=== PATIENT | male | born 1980 | race Caucasian/White ===

== ENCOUNTER 2020-02-15 12:58 | Emergency (ER) | payer MEDICAID, SELFPAY ==
[2020-02-15 13:16] VITALS: BP 129/94; PULSE 93; RESP 20; TEMP 36.6; O2SAT 97; BMI 27.6
--- NOTE | 2020-02-15 13:19 | HMH.EDUTC ---
[facility] [place] Disposition Clinical Impression: Viral syndrome, Bronchitis Disposition: Home, Self-Care Condition on Discharge: Good Instructions: DI for Viral Syndrome Additional Instructions: Drink plenty of fluids. Take tylenol or ibuprofen for pain or fever. Take the medications as directed. Follow up with your regular doctor. GO TO THE ER FOR ANY WORSENING SYMPTOMS Prescriptions: Brompheniramine/Pseudoephed/Dm [Bromfed Dm Cough Syrup] 5 ml PO Q6HP PRN #240 syrup PRN Reason: Cough Transmission Status: Received by [facility] # Ondansetron [Zofran 4mg ODT] 4 mg PO Q8HP PRN #10 tab.rapdis PRN Reason: Nausea Transmission Status: Received by [facility] # Azithromycin [Z-Bong 250mg Tab*] 250 mg PO UD DOSE PK #6 tab Transmission Status: Received by [facility] # Referrals: Provider,Referral, MD [Primary Care Provider] - Forms: Work/School Release Time of Disposition: 13:34 Medical Decision Making - Medical Records Medical records reviewed: No: I reviewed the patient's medical records. - Lonnie Inquiry Pt receiving controlled substance: No Vital Signs: 02/15/20 13:16 02/15/20 13:35 Temperature 98 F 98 F Temperature Source Oral Oral Pulse Rate 93 H Pulse Rate [Right Brachial] 93 H Respiratory Rate 20 20 Blood Pressure 129/94 H Blood Pressure [Right Arm] 129/94 H Blood Pressure Mean [Right Arm] 105 Blood Pressure Source Automatic Cuff Blood Pressure Source [Right Arm] Automatic Cuff Blood Pressure Position Sitting Blood Pressure Position [Right Arm] Sitting 02 Sat by Pulse Oximetry 97 Oxygen Delivery Method Room Air Room Air - Lab Data Lab Results 02/15/20 13:22: Influenza Type A Ag Negative, Influenza Type B Ag Negative 02/15/20 13:22: Strep Scn Rapid Clinic Negative Orders (Tests/Meds): ORDERS Category Date Time Status Strep Screen Confirmation Stat Micro 02/15/20 13:22 Received [facility] [place] HPI - General Stated complaint: cough diarrhea nausea Time Seen by Provider: 02/15/20 13:19 - History of Present Illness Provider Complaint: He states that for the past 2 days he has had a mild cough, low grade fever and some nausea. He denies any body aches. He denies feeling bad. - Related Data Previous Rx's Medication Instructions Recorded Azithromycin [Z-Bong 250mg Tab*] 250 mg PO UD DOSE PK #6 tab 02/15/20 Brompheniramine/Pseudoephed/Dm 5 ml PO Q6HP PRN #240 syrup 02/15/20 [Bromfed Dm Cough Syrup] Ondansetron [Zofran 4mg ODT] 4 mg PO Q8HP PRN #10 tab.rapdis 02/15/20 Allergies Allergy/AdvReac Type Severity Reaction Status Date / Time No Known Allergies Allergy Verified 02/15/20 13:22 [facility] History - Hepatitis A Screen Attestation statement:: This patient has been screened for Hepatitis A risk factors. I have reviewed the patient's past medical history: Yes ROS Obtained: No All systems reviewed & no additional complaints - Constitutional Constitutional: Denies chills, Denies fever(s), Reports poor appetite, Reports malaise - Eyes Eyes: Denies eye discharge - ENT Ears, Nose, Mouth, and Throat: Reports as per HPI - Cardiovascular Cardiovascular: Denies chest pain - Respiratory Respiratory: No chest congestion, No cough, No dyspnea, No coughing up blood, No stridor, No wheezing Physical Exam - General General appearance: alert, in no apparent distress - Head Head exam: atraumatic, normocephalic, normal inspection - Eye Eye exam: Present: normal appearance, PERRL, EOMI - ENT ENT exam: Present: normal exam, normal oropharynx, mucous membranes moist, TM's normal bilaterally, normal external ear exam - Neck Neck exam: Present: normal inspection, full ROM, trachea midline. Absent: meningismus, lymphadenopathy - Chest Chest inspection: Present: normal inspection, symmetric chest wall rise. Absent: tenderness - Respiratory Respiratory exam: Present: normal lung sounds
[2020-02-15 13:28] LABS: UTC Strep Screen (Rapid) Negative (Negative)
[2020-02-15 13:29] LABS: UTC Influenza A Antigen Negative (Negative); UTC Influenza B Antigen Negative (Negative)
[2020-02-15 13:35] VITALS: BP 129/94; PULSE 93; RESP 20; TEMP 36.6; O2SAT 97
== END 2020-02-15 13:40 | disposition home or self-care (01) ==
PROVIDERS: Emergency Provider Nurse Practitioner Family
DX: B34.9 Viral infection, unspecified (principal); J20.9 Acute bronchitis, unspecified
CPT/HCPCS: 87804; 87880; 99202

== ENCOUNTER 2021-07-03 02:14 | Emergency (ER) | payer SELFPAY ==
[2021-07-03 02:15] VITALS: BP 132/87; PULSE 87; RESP 16; TEMP 36.6; O2SAT 96; BMI 25.8
--- NOTE | 2021-07-03 02:39 | HMH.EDSKAF ---
ED Disposition Clinical Impression: Dermatitis Disposition: Home, Self-Care Condition on Discharge: Good Instructions: DI for Itching Additional Instructions: use meds and see pcp for follow up Prescriptions: predniSONE [Prednisone 20mg Tab] 20 mg PO BID #10 tab Transmission Status: Pending to [facility] # hydrOXYzine pamoate [Vistaril] 25 mg PO TID PRN #30 cap PRN Reason: Itching Transmission Status: Pending to [facility] # Referrals: Provider,Referral, [Primary Care Provider] - - Critical Care Critical Care Time: No Attestation: On 07/03/21, the high probability of a clinically significant, sudden or life threatening deterioration of the following system(s) required my full and direct attention, intervention and personal management. The time I documented below is in addition to time spent performing reported procedures but includes the following listed in this critical care notation. Medical Decision Making - Medical Records Medical records reviewed: Yes: I reviewed the patient's medical records. - Lnonie Inquiry Pt receiving controlled substance: No Vital Signs: 07/03/21 02:15 Temperature 97.8 F Temperature Source Oral Pulse Rate [Left Radial] 87 Respiratory Rate 16 Blood Pressure [Right Arm] 132/87 Blood Pressure Mean [Right Arm] 102 Blood Pressure Source [Right Arm] Automatic Cuff Blood Pressure Position [Right Arm] Sitting 02 Sat by Pulse Oximetry 96 Oxygen Delivery Method Room Air Medical Decision Narrative: nonspecific rash to leg with itching - not prob tick and no evid of infection Skin/Abscess/FB HPI - General Chief complaint: Skin/Abscess/Foreign Body Stated complaint: Stinging itch in both legs Time Seen by Provider: 07/03/21 02:20 Mode of Arrival: Ambulatory Source of Information: Patient, Medical Record Limitations: No Limitations Description of Symptoms (Recalled from ER Triage Doc. by RN): Pt c/o BLE itching since 10am 07/02. Pt denies fevers. Denies N/V/D. Denies cough. Pt reports bites to both thighs. - History of Present Illness HPI narrative: has rash bites to lower ext with stinging and itchy - no fever or other c/o MD complaint: rash Onset (ago): day(s) Tetanus up to date: unsure Location: LLE, RLE Severity: moderate Associated symptoms: itching Treatments prior to arrival: none - Related Data Previous Rx's Medication Instructions Recorded hydrOXYzine pamoate [Vistaril] 25 mg PO TID PRN #30 cap 07/03/21 predniSONE [Prednisone 20mg 20 mg PO BID #10 tab 07/03/21 Tab] Allergies Allergy/AdvReac Type Severity Reaction Status Date / Time No Known Allergies Allergy Verified 02/15/20 13:22 [facility] History - Hepatitis A Screen Drug use history?: No High risk sexual behaviors?: No History of sexually transmitted infection?: No Currently employed?: No Childcare worker?: No Do you have indoor plumbing?: Yes Do you have electricity?: Yes Attestation statement:: This patient has been screened for Hepatitis A risk factors. I have reviewed the patient's past medical history: Yes - Social History Smoking Status: Current every day smoker Tobacco Type: cigarettes # Packs/Day (cigarettes): 1 Alcohol Intake: never Occupational Status: employed ROS Obtained: Yes All systems reviewed & no additional complaints - Constitutional Constitutional: Denies fever(s) - Eyes Eyes: Denies change in vision - ENT Ears, Nose, Mouth, and Throat: Denies sore throat - Cardiovascular Cardiovascular: Denies chest pain - Respiratory Respiratory: Denies shortness of breath - Gastrointestinal Gastrointestingal: Denies: abdominal pain - Genitourinary Male Genitourinary: Denies hematuria - Musculoskeletal Musculoskeletal: Denies joint pain - Integumentary/Breasts Skin/Breast: Reports as per HPI, Reports rash - Neurologic Neurologic: Denies headache(s), Denies seizure-like activity Physical Exa
[2021-07-03 02:48] VITALS: BP 133/80; PULSE 80; RESP 17; TEMP 36.7; O2SAT 96
== END 2021-07-03 02:51 | disposition home or self-care (01) ==
PROVIDERS: Emergency Provider Emergency Medicine
DX: L30.9 Dermatitis, unspecified (principal); F17.210 Nicotine dependence, cigarettes, uncomplicated
CPT/HCPCS: 99281

== ENCOUNTER 2022-06-16 10:11 | Emergency (ER) | payer MEDICAID, SELFPAY ==
--- NOTE | 2022-06-16 10:40 | HMH.EDUTC ---
[facility] [place] Clinical Impression: Viral syndrome, Bronchitis, Exposure to COVID-19 virus Disposition: Home, Self-Care Condition on Discharge: Good Instructions: DI for Viral Syndrome, DI for COVID-19 (Suspected or Confirmed ), Preventing the Spread of Coronavirus Discharge Instructions Additional Instructions: Drink plenty of fluids. Take tylenol or ibuprofen for pain or fever. Take the medications as directed. Follow up with your regular doctor. GO TO THE ER FOR ANY WORSENING SYMPTOMS Quarantine until you know the results of your covid-19 test. Notify your school or workplace of your results and follow their instructions regarding return to work/school. Prescriptions: Ondansetron [Zofran 4mg ODT] 4 mg PO Q8HP PRN #12 tab PRN Reason: Nausea Transmission Status: Received by [id number] methylPREDNISolone [Medrol] 4 mg PO DIRECTED 6 Days #21 packet Transmission Status: Received by [id number] Azithromycin [Z-Bong 250mg Tab*] 250 mg PO UD DOSE PK #6 tab Transmission Status: Received by [id number] Referrals: Timur Armstrong MD [Primary Care Provider] - Forms: Work/School Release Time of Disposition: 10:57 Medical Decision Making - Medical Records Medical records reviewed: No: I reviewed the patient's medical records. - Lonnie Inquiry Pt receiving controlled substance: No Vital Signs: 06/16/22 10:43 06/16/22 11:17 Temperature 99.0 F 99.0 F Temperature Source Oral Pulse Rate 89 Pulse Rate [Left] 89 Respiratory Rate 16 16 Blood Pressure 105/71 L Blood Pressure [Right Arm] 105/71 L Blood Pressure Mean [Right Arm] 82 02 Sat by Pulse Oximetry 96 [facility] [place] HPI - General Stated complaint: body aches, LAMB, fever, cough, diarreia Time Seen by Provider: 06/16/22 10:40 - History of Present Illness Provider Complaint: He states that he has felt bad for the past 2 days. He has been exposed to covid-19. - Related Data Previous Rx's Medication Instructions Recorded hydrOXYzine pamoate [Vistaril] 25 mg PO TID PRN #30 cap 07/03/21 predniSONE [Prednisone 20mg 20 mg PO BID #10 tab 07/03/21 Tab] Azithromycin [Z-Bong 250mg Tab*] 250 mg PO UD DOSE PK #6 tab 06/16/22 Ondansetron [Zofran 4mg ODT] 4 mg PO Q8HP PRN #12 tab 06/16/22 methylPREDNISolone [Medrol] 4 mg PO DIRECTED 6 Days #21 06/16/22 packet Allergies Allergy/AdvReac Type Severity Reaction Status Date / Time No Known Allergies Allergy Verified 06/16/22 10:45 [facility] History - Hepatitis A Screen Attestation statement:: This patient has been screened for Hepatitis A risk factors. I have reviewed the patient's past medical history: Yes - Social History Smoking Status: Current every day smoker Tobacco Type: cigarettes # Packs/Day (cigarettes): 1 Alcohol Intake: never Occupational Status: employed ROS Obtained: Yes All systems reviewed & no additional complaints - Constitutional Constitutional: Reports as per HPI - Eyes Eyes: Denies eye discharge - ENT Ears, Nose, Mouth, and Throat: Reports as per HPI - Cardiovascular Cardiovascular: Denies chest pain - Respiratory Respiratory: Denies chest congestion, Reports cough Physical Exam - General General appearance: alert, in no apparent distress - Head Head exam: atraumatic, normocephalic, normal inspection - Eye Eye exam: Present: normal appearance, PERRL, EOMI - ENT ENT exam: Present: normal exam, normal oropharynx, mucous membranes moist, TM's normal bilaterally, normal external ear exam - Neck Neck exam: Present: normal inspection, full ROM, trachea midline. Absent: meningismus, lymphadenopathy - Chest Chest inspection: Present: normal inspection, symmetric chest wall rise. Absent: tenderness - Respiratory Respiratory exam: Present: normal lung sounds bilaterally. Absent: respiratory distress - Cardiovascular Cardiovascular exam: Present: regular rate, normal rhythm.
[2022-06-16 10:43] VITALS: BP 105/71; PULSE 89; RESP 16; TEMP 37.2; O2SAT 96; BMI 26.6
[2022-06-16 11:17] VITALS: BP 105/71; PULSE 89; RESP 16; TEMP 37.2
== END 2022-06-16 11:17 | disposition home or self-care (01) ==
PROVIDERS: Emergency Provider Nurse Practitioner Family; PCP Emergency Medicine
DX: U07.1 COVID-19 (principal); R19.7 Diarrhea, unspecified; R51.9 Headache, unspecified; M79.10 Myalgia, unspecified site; F17.210 Nicotine dependence, cigarettes, uncomplicated; Z79.52 Long term (current) use of systemic steroids
CPT/HCPCS: 99213; C9803; G0463; U0003; U0005

== ENCOUNTER 2022-09-20 09:04 | Emergency (ER) | payer MEDICAID, SELFPAY ==
[2022-09-20 10:40] VITALS: BP 155/92; PULSE 72; RESP 18; TEMP 36.6; O2SAT 98; BMI 25.8
--- NOTE | 2022-09-20 11:03 | EXP.UTC ---
Discharge Plan Disposition Patient Disposition: Home, Self-Care Condition: Good Prescriptions Prescriptions: New etodolac 200 mg capsule 200 mg PO Q8H PRN (Reason: pain) Qty: 20 0RF methylprednisolone [Medrol (Bong)] 4 mg tablets,dose pack See Rx Instructions .Route .COMPLEX 6 Days Qty: 21 0RF Rx Instructions: taper pack; methocarbamol 500 mg tablet 500 mg PO TID PRN (Reason: muscle spasm) Qty: 15 0RF Referrals Follow up/Referrals: Timur Armstrong MD [Primary Care Provider] - See instructions Activity Restrictions/Add. Instructions Additional Instructions/Restrictions: *Etodolac every 8 hours with meal as needed for pain/inflammation do not start until 11pm tonight *Remember you had a Toradol shot in the clinic today, which is similar to Etodolac *Not additional anti-inflammatory like motrin, ibuprofen aleve, advil with the above amount of Etodolac. You can still take Tylenol every 4 hours as needed if you need something else for pain *Ice 20 minutes every 2 hours for the first 48 hours after the initial injury followed by moist heat every 20 minutes 3-4 times a day to affected area *Muscle relaxer every 8 hours as needed for muscle spasms but remember, it WILL cause drowsiness You cannot take it and drive, operate machinery or care for small children. *Keep this area active, no movement leads to more stiffness, However take it easy and avoid heavy lifting pushing or pulling *Follow up with you family doctor if no improvement for further treatment Start medrol dose pack tomorrow Clinical Impressions Clinical Impression: Low back pain Qualifiers: Chronicity: acute Back pain laterality: unspecified Sciatica presence: without sciatica Qualified Code(s): M54.50 - Low back pain, unspecified Stand Alone Forms Stand Alone Forms: Work/School Release Instructions Patient Instructions: Low Back Pain, DI for Low Back Pain Discharge ED Provider: Johanna Austin [facility] [place] General Stated complaint: back pain Mode of Arrival: Ambulatory Source of Information: Patient Limitations: No Limitations Time Seen by Provider: 09/20/22 11:03 Description of Symptoms (Recalled from Triage Doc. by RN): PATIENT C/O LOWER BACK PAIN X 1 WEEK HEENT Symptoms (Recalled from RN notes): No Resp Symptoms (Recalled from RN notes): No Skin Symptoms (Recalled from RN notes): No MS Symptoms (Recalled from RN notes): Yes Functional Status (Recalled from RN notes): WNL History of Present Illness Provider Complaint: Patient states that he does alot of standing and walking at work States that he has been having pain in his left lower back States that he hasnt done anything that he is aware of to hurt it but has had back problems in the past States that feels like he is having spasms when he moves certain ways so today he came in denies loss of control of bowel or bladder Related Data Previous Rx's Medication Instructions Recorded etodolac 200 mg capsule 200 mg PO Q8H PRN pain #20 caps 09/20/22 methocarbamol 500 mg tablet 500 mg PO TID PRN muscle spasm #15 09/20/22 tabs methylprednisolone 4 mg tablets in See Rx Instructions .Route 09/20/22 a dose pack (Medrol (Bong)) .COMPLEX 6 days #21 tabs Allergies Allergy/AdvReac Type Severity Reaction Status Date / Time No Known Allergies Allergy Verified 06/16/22 10:45 Worker's Comp Is this a Worker's Comp case?: No PFSH PFSH Surgical History (Updated 09/20/22 @ 10:48 by Summer Diana RN) History of appendectomy Social History (Updated 09/20/22 @ 10:48 by Summer Diana RN) Smoking Status: Current every day smoker tobacco type: cigarettes packs per day: 1 alcohol intake: never current occupational status: employed Travel in the last 8 weeks: None ROS Obtained: Yes All systems reviewed & no additional complaints except as documented and Yes Systems reviewed as appropriate & no additional complaints except as documented Constitutional Constitutional:
[2022-09-20 11:26] VITALS: BP 155/92; PULSE 72; RESP 18; TEMP 36.6; O2SAT 98
== END 2022-09-20 11:33 | disposition home or self-care (01) ==
PROVIDERS: Emergency Provider Nurse Practitioner; PCP Emergency Medicine
DX: M54.50 Low back pain, unspecified (principal)
CPT/HCPCS: 96372; 99213; G0463

== ENCOUNTER 2023-09-21 18:11 | Emergency (ER) | payer MEDICAID, SELFPAY ==
[2023-09-21] VITALS (15 sets, daily range): BP systolic 109–138; BP diastolic 68–91; PULSE 40–68; RESP 13–27; TEMP 36.3–36.8; O2SAT 98–100; BMI 28.7
--- NOTE | 2023-09-21 18:34 | PC.NURSE ---
Dr. Coley at bedside
--- NOTE | 2023-09-21 18:38 | HMH.EDGENADL ---
Discharge Plan Disposition Patient Disposition: Left Against Medical Advice Prescriptions Prescriptions: No Action No Known Home Medications Referrals Follow up/Referrals: Bhavin Mathew MD [Primary Care Provider] - See instructions Clinical Impressions Clinical Impression: Diarrhea, Nausea, Chronic back pain, Cannabinoid hyperemesis syndrome, Bradycardia, sinus Instructions Patient Instructions: DI for Diarrhea and Traveler's Diarrhea -- Adult, DI for Diarrhea and Traveler's Diarrhea -- Child, DI for Nausea -- Adult, DI for Nausea -- Child Discharge ED Provider: Jessenia Coley General Adult HPI General Chief complaint: Nausea/Vomiting/Diarrhea Stated complaint: back pain, vomiting Time Seen by Provider: 09/21/23 18:33 History of Present Illness HPI narrative: Patient is a 43-year-old male presenting today with multiple complaints. States he is having nausea diarrhea and lower back pain. His lower back pain he states is chronic but is a little bit worse than normal at the moment. Soft of the midline in the paraspinal musculature in the lumbar region. No midline pain no injuries no saddle anesthesia bowel or bladder incontinence urinary retention lower extremity weakness fevers history of injection drug use or cancer. No fevers or chills that he is aware of. 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 Related Data Home Medications Medication Instructions Recorded Confirmed No Known Home Medications 09/21/23 09/21/23 Allergies Allergy/AdvReac Type Severity Reaction Status Date / Time No Known Allergies Allergy Verified 10/05/22 09:02 [facility] Disclaimer: The information contained in this section may have been updated after the patient was seen, as this information can be updated by other users. Surgical History History of appendectomy Social History Smoking Status: Former smoker tobacco type: cigarettes packs per day: 1 alcohol intake: never current occupational status: employed Travel in the last 8 weeks: None ROS Obtained: Yes All systems reviewed & no additional complaints except as documented Physical Exam General General appearance: other (Patient lying in bed with his eyes closed would not open them to interact with me) Respiratory Respiratory exam: Present normal lung sounds bilaterally; Absent respiratory distress, wheezes or stridor Cardiovascular Cardiovascular exam: Present regular rate; Absent tachycardia Abdominal Exam Abdominal exam: Present soft; Absent distention or tenderness Back Exam Back exam: Present other (No midline spine tenderness normal neurovascular exam in bilateral lower extremities) Neurological Exam Neurological exam: Present alert and oriented X3 Medical Decision Making Lonnie Inquiry Pt receiving controlled substance: No Vital Signs: 09/21/23 18:12 09/21/23 18:20 09/21/23 18:40 Temperature 97.4 F L Temperature Source Oral Pulse Rate 49 L 43 L Pulse Rate [Left Radial] 59 L Respiratory Rate 20 Blood Pressure 137/89 138/86 Blood Pressure [Right Arm] 137/89 Blood Pressure Mean Blood Pressure Mean [Right Arm] 105 Blood Pressure Source [Right Arm] Automatic Cuff Blood Pressure Position [Right Arm] Sitting 02 Sat by Pulse Oximetry 100 99 99 Oxygen Delivery Method Room Air Room Air Room Air 09/21/23 19:00 Temperature Temperature Source Pulse Rate 47 L Pulse Rate [Left Radial] Respiratory Rate 22 Blood Pressure 116/81 Blood Pressure [Right Arm] Blood Pressure Mean 92 Blood Pressure Mean [Right Arm] Blood Pressure Source [Right Arm] Blood Pressure Position [Right Arm] 02 Sat by Pulse Oximetry 100 Oxygen Delivery Method Lab Data Lab results reviewed: Yes I reviewed the patient's lab results. Lab Results 09/21/23 18:38: Sodium 137, [place]
--- NOTE | 2023-09-21 18:45 | ECG_ITS ---
APPROVED REPORT Exam: Resting ECG HR:35 bpm ECG Measurements Heart Rate [address] 192 P 43 QRSd 106 QRS 47 QT 439 T 37 QTc 341 Conclusion SINUS BRADYCARDIA WITH SINUS ARRHYTHMIA CRITICAL TEST RESULT UNCONFIRMED REPORT Electronically signed by : Rafi Guevara MD 09/23/2023 08:54:44
--- NOTE | 2023-09-21 18:47 | PC.NURSE ---
While Mari Beltran RN at pt HR dropped into the thirties. Dr. Coley notified and EKG performed.
--- NOTE | 2023-09-21 18:57 | PC.NURSE ---
Pt provided with urinal and made aware he needs to obtain a urine sample.
[2023-09-21 19:04] LABS: Alanine Aminotransferase 35 U/L (12-78); Albumin Level 4.9 g/dl (3.5-5.0); Albumin/Globulin Ratio 1.6 (1.1-1.8); Alkaline Phosphatase 132 U/L (38-126); Anion Gap 15.1 mEq/L (5-15); Aspartate Amino Transferase 38 U/L (17-59); Bilirubin,Total 0.5 mg/dl (0.2-1.3); Blood Urea Nitrogen 11 mg/dl (9-20); Calcium 9.1 mg/dl (8.4-10.2); Carbon Dioxide 19 mmol/L (22.0-30.0); Chloride 107 mmol/L (98-107); Creatinine Clearance Estimated 123 mL/min (50-200); Estimated Glomerular Filt Rate 82 ml/min (>60); GFR (African American) 99 ML/MIN (>60); Glucose 126 mg/dl (74-100); Potassium 4.1 mmoL/L (3.5-5.1); Sodium 137 mmol/L (136-145); Total Protein,Serum 7.9 g/dl (6.3-8.2)
--- NOTE | 2023-09-21 19:32 | PC.NURSE ---
Patient continues to report nausea, provider notified that patient remains nauseated. No new orders at this time. Provided patient with blanket.
[2023-09-21 19:35] LABS: Basophils % 0.4 % (0.1-2.0); Eosinophils # 0.1 K/mm3 (0.0-0.4); Eosinophils % 1.1 % (0.1-12.0); Hematocrit 41.7 % (42.0-52.0); Hemoglobin 13.5 g/dL (14.1-18.0); Lymphocytes # 1.7 K/mm3 (0.7-4.5); Lymphocytes % 15.9 % (10-50); Mean Corpuscular HGB Conc 32.5 g/dL (31.8-35.4); Mean Corpuscular Hemoglobin 27.8 pg (27.0-31.2); Mean Corpuscular Volume 85.6 fl (80-94); Mean Platelet Volume 8.8 fl (7.4-10.4); Monocytes # 0.5 K/mm3 (0.1-1.0); Monocytes % 4.2 % (1.7-9.3); Neutrophils # 8.3 K/mm3 (1.8-7.8); Neutrophils % 78.4 % (37.0-80.0); Platelet Count 236 K/mm3 (142-424); Red Blood Count 4.86 M/mm3 (4.60-6.20); White Blood Count 10.6 K/mm3 (4.8-10.8)
[2023-09-21 19:46] LABS: Coronavirus 19, PCR Not Detected (NotDetected); Influenza A, PCR Not Detected (NotDetected); Influenza B, PCR Not Detected (NotDetected)
[2023-09-21 20:01] LABS: Troponin I < 0.01 ng/ml (0.00-0.034)
--- NOTE | 2023-09-21 20:07 | PC.NURSE ---
Notified provider that patient continues to have severe nausea.
--- NOTE | 2023-09-21 21:06 | PC.NURSE ---
Patient continues to report severe nausea. Visitor at bedside verbalizes concern that the medications we are giving are not helping. Spoke with provider regarding patient/visitor concerns. Discussed current plan of care with provider and patient. Patient is in agreement with current plan.
--- NOTE | 2023-09-21 21:33 | PC.NURSE ---
Visitor came to the nursing station and spoke with this RN states that patient would like to just go home. Told him that I would notify the provider to come speak with the patient. Notified provider of what patient has requested. Updated patient that he would be bedside as soon as possible.
--- NOTE | 2023-09-21 21:40 | PC.NURSE ---
Patient's spouse at bedside reports that patient would like to leave against medical advice at this time. Patient does not wish to wait to speak to the provider again. States he would just like to go home and lie down. Provided education to patient and spouse regarding the need for monitoring after medication administration, that the patient should not drive or be alone after the medications. Patient's agreed with patient and has agreed to take patient home under her care at this time. Notified broker in charge, notified provider. Explained risks of leaving against medical advice including the worsening of symptoms, injury, up to the risk of . Patient and patient's verbalizes understanding at this time and wishes to proceed with AMA paperwork.
== END 2023-09-21 21:48 | disposition left against medical advice (07) ==
PROVIDERS: Emergency Provider Student in an Organized Health Care Education/Training Program; PCP Family Medicine
DX: R00.1 Bradycardia, unspecified (principal); R11.2 Nausea with vomiting, unspecified; R19.7 Diarrhea, unspecified; M54.9 Dorsalgia, unspecified; F12.188 Cannabis abuse with other cannabis-induced disorder; Z87.891 Personal history of nicotine dependence
CPT/HCPCS: 80053; 84484; 85025; 87636; 93005; 96361; 96374; 96375; 99284; J1790; J2405